=== PATIENT | female | born 2005 | race Two or more races ===

== ENCOUNTER 2025-06-02 03:59 | Emergency (ER) | payer OTHER ==
[~2025-06-02] VITALS: Ht 162.6 cm; Wt 79.4 kg
[2025-06-02] MEDS ORDERED: KETOROLAC TROMETHAMINE 10 MG TABLET PO STA (05:26)
[2025-06-02 06:20] LABS: BASO % 0.2 % (0.1-1.2); EOS # 0.15 (0.04-0.54); EOS % 1.4 % (0.7-7.0); LYMPH # 2.72 (1.18-3.74); LYMPH % 24.5 % (19.3-53.1); MEAN PLATELET VOLUME 11.80 fl (9.4-12.4); MONO # 0.62 (0.24-0.82); MONO % 5.6 % (4.7-12.5); NEUT # 7.53 (1.56-6.13); NEUT % 67.9 % (34.0-71.1); RED CELL DISTRIBUTION WIDTH 13.3 % (11.6-14.4)
[2025-06-02 06:44] LABS: BUN CREA RATIO 17.0 (7.0-25.0); CREATININE SERUM 0.7 mg/dL (0.55-1.02); GFR 107.8; GLUCOSE FASTING 89.0 mg/dL (65-100); OSMOLALITY SERUM 280.0 MOSM/KG (275-295)
== END 2025-06-02 08:23 | disposition home or self-care (01) ==
LOC: ER 03:59 → EMR PED 04:12 → ER 04:12 → EMR PED 08:23
PROVIDERS: General Practice
DX: R06.02 Shortness of breath (principal); R07.89 Other chest pain; R20.2 Paresthesia of skin; F41.9 Anxiety disorder, unspecified